=== PATIENT | female | born 1940 | race African-American/Black ===

== ENCOUNTER 2017-06-28 06:41 | Day surgery (SDC) | payer MEDICARE, BC ==
[~2017-06-28] VITALS: Ht 162.6 cm; Wt 77.1 kg
[2017-06-28] VITALS (9 sets, daily range): BP systolic 110–137; BP diastolic 67–81
--- NOTE | 2017-06-28 00:27 | Pre-Procedure Note/Attestation ---
Pre-Procedure Note/Attestation Complete Prior to Procedure Planned Procedure: right Procedure Narrative: cataract extraction with implant right eye Indications for Procedure Pre-Operative Diagnosis: cataract right eye Attestation I attest that I discussed the nature of the procedure; its benefits; risks and complications; and alternatives (and the risks and benefits of such alternatives ), prior to the procedure, with the patient (or the patient's legal veterans employment representative). I attest that, if there was a reasonable possibility of needing a blood transfusion, the patient (or the patient's legal veterans employment representative) was given the [facility] standardized written summary, pursuant to the [place] Blood Safety Act ([place] Health and Safety Code # 1645, as amended). I attest that I re-evaluated the patient just prior to the surgery and that there has been no change in the patient's H&P, except as documented below: TITO GRAMAJO Jun 28, 2017 00:27
--- NOTE | 2017-06-28 00:27 | Pre-Procedure Note/Attestation ---
Pre-Procedure Note/Attestation Complete Prior to Procedure Planned Procedure: right Procedure Narrative: cataract extraction with implant right eye Indications for Procedure Pre-Operative Diagnosis: cataract right eye Attestation I attest that I discussed the nature of the procedure; its benefits; risks and complications; and alternatives (and the risks and benefits of such alternatives ), prior to the procedure, with the patient (or the patient's legal sales representative groceries). I attest that, if there was a reasonable possibility of needing a blood transfusion, the patient (or the patient's legal sales representative groceries) was given the [facility] standardized written summary, pursuant to the Jerman [place] Blood Safety Act ([place] Health and Safety Code # 1645, as amended). I attest that I re-evaluated the patient just prior to the surgery and that there has been no change in the patient's H&P, except as documented below: TITO GRAMAJO Jun 28, 2017 00:27
--- NOTE | 2017-06-28 00:27 | Pre-Procedure Note/Attestation ---
Pre-Procedure Note/Attestation Complete Prior to Procedure Planned Procedure: right Procedure Narrative: cataract extraction with implant right eye Indications for Procedure Pre-Operative Diagnosis: cataract right eye Attestation I attest that I discussed the nature of the procedure; its benefits; risks and complications; and alternatives (and the risks and benefits of such alternatives ), prior to the procedure, with the patient (or the patient's legal construction representative). I attest that, if there was a reasonable possibility of needing a blood transfusion, the patient (or the patient's legal construction representative) was given the [facility] standardized written summary, pursuant to the Jerman [place] Blood Safety Act ([place] Health and Safety Code # 1645, as amended). I attest that I re-evaluated the patient just prior to the surgery and that there has been no change in the patient's H&P, except as documented below: TITO GRAMAJO Jun 28, 2017 00:27
[2017-06-28] MEDS ORDERED: Dexamethasone 4mg/ml vial ONE (06:53)
[2017-06-28] MEDS ORDERED: Lidocaine 1% MPF 10mg/ml 5ml ONE (06:53)
[2017-06-28] MEDS ORDERED: EPINEPHrine 1mg/1ml Amp ONE (06:53)
[2017-06-28] MEDS ORDERED: BSS 15ml BTL ONE (06:53)
[2017-06-28] MEDS ORDERED: Povidone-Iodine 5% opth solution ONE (06:53)
[2017-06-28] MEDS ORDERED: BSS 500ml btl ONE (06:53)
[2017-06-28] MEDS ORDERED: Sodium Hyaluronate 14 mg/ml 0.85ml ONE (06:54)
[2017-06-28] MEDS ORDERED: Flurbiprofen 0.03% Opth Sol 2.5ml RIGHT EYE SCH (07:00)
[2017-06-28] MEDS ORDERED: Tobradex Opth Susp 2.5ml ONE (07:49)
[2017-06-28] MEDS ORDERED: Flurbiprofen 0.03% Opth Sol 2.5ml ONE (07:49)
[2017-06-28] MEDS ORDERED: Tropicamide 1% Opth 15ml Soln ONE (07:49)
[2017-06-28] MEDS ORDERED: Phenylephrine 2.5% Op 2ml Soln ONE (07:49)
[2017-06-28] MEDS ORDERED: Akten 3.5% 1ml Btl ONE (07:49)
[2017-06-28] MEDS ORDERED: Vigamox Opth Soln 3ml ONE (07:49)
[2017-06-28] MEDS: Vigamox Opth Soln 3ml RIGHT EYE SCH ×3 (07:53→08:20)
[2017-06-28] MEDS: Tropicamide 1% Opth 15ml Soln RIGHT EYE SCH ×3 (07:54→08:19)
[2017-06-28] MEDS: Phenylephrine 2.5% Op 2ml Soln RIGHT EYE SCH ×3 (07:54→08:19)
[2017-06-28] MEDS: Akten 3.5% 1ml Btl RIGHT EYE SCH ×3 (07:54→08:20)
[2017-06-28] MEDS: Flurbiprofen 0.03% Opth Sol 2.5ml RIGHT EYE SCH ×4 (07:54→08:25)
[2017-06-28] MEDS: Tobradex Opth Susp 2.5ml RIGHT EYE SCH ×3 (07:54→08:20)
[2017-06-28] MEDS ORDERED: FLONASE SENSIM9.9 ML NS (08:11)
[2017-06-28] MEDS ORDERED: NEXIUM40 MG ORAL (08:11)
[2017-06-28] MEDS ORDERED: fentaNYL 100 mcg/2 mL IV ONE (08:53)
[2017-06-28] MEDS ORDERED: Sterile Water Irrig 1000ml IRRIG ONE (08:53)
[2017-06-28] MEDS ORDERED: Midazolam 2mg/2ml Inj ONE (08:53)
[2017-06-28] MEDS ORDERED: NS Irrig 1000ml ONE (08:53)
--- NOTE | 2017-06-28 09:29 | Anethesia Preoperative Eval ---
Anesthesia Pre-op PMH/ROS General Date of Evaluation: Jun 28, 2017 Time of Evaluation: 08:53 Anesthesiologist: Rula ASA Score: ASA 3 Mallampati Score Class I : Soft palate, uvula, fauces, pillars visible Class II: Soft palate, uvula, fauces visible Class III: Soft palate, base of uvula visible Class IV: Only hard plate visible Mallampati Classification: Class II Surgeon: Arnaldo Diagnosis: cataract right eye Surgical Procedure: right eye cataract removal w/ imlplant Anesthesia History: none Family History: no anesthesia problems Allergies: Coded Allergies: PENICILLINS (Verified Allergy, Severe, Rash, 06/28/17) Past Medical History Cardiovascular: Denies: HTN, CAD, NV, valve dz, arrhythmia, other Pulmonary: Reports: asthma - controlled uses inhalaer 3 X per year Gastrointestinal/Genitourinary: Reports: GERD - occasional, controlled with nexium 3 x per week Neurologic/Psychiatric: Denies: dementia, CVA, depression/anxiety, TIA, other Endocrine: Reports: other - L breast CA HEENT: Reports: cataract (L), cataract (R) Hematology/Immune: Denies: anemia, DVT, bleeding disorder, other Musculoskeletal/Integumentary: Reports: DJD - joint pain Other: obesity, other - sinus problem related to seasonal allergy Anesthesia Pre-op Phys. Exam Physician Exam Last Vital Signs Date Time Temp Pulse Resp B/P (MAP) Pulse Ox O2 Delivery O2 Flow Rate FiO2 06/28/17 07:58 97.2 81 18 137/77 97 Room Air Constitutional: NAD Neurologic: CN 2-12 intact Cardiovascular: RRR Respiratory: CTA Gastrointestinal: S/NT/ND Airway Exam Mallampati Score: Class II MO: full ROM: full Teeth: intact Dentures: no upper, no lower Anesthesia Pre-op A/P Labs chart reviewed Studies Pre-op Studies: EKG - NSR Risk Assessment & Plan Plan: MAC Status Change Before Surgery: No Pre-Antibiotics Given Within 1 Hr of Incision: No Jessica Horta CRNA Jun 28, 2017 09:29
--- NOTE | 2017-06-28 09:30 | Immediate Post-Op Evaluation ---
Immediate Post-Op Evalulation Immediate Post-Op Evalulation Procedure: right eye cataract removal with implant Date of Evaluation: Jun 28, 2017 Time of Evaluation: 09:36 IV Fluids: LR 300 ml Blood Products: 0 Estimated Blood Loss: less than 2 ml Urinary Output: 0 Blood Pressure Systolic: 128 Blood Pressure Diastolic: 67 Pulse Rate: 89 Respiratory Rate: 20 O2 Sat by Pulse Oximetry: 100 Temperature (Fahrenheit): 97.4 Pain Score (1-10): 0 Nausea: No Vomiting: No Complications none Patient Status: awake, reacts Hydration Status: adequate Given Within 1 Hr of Incision: Jessica Kaplan CRNA Jun 28, 2017 09:30
--- NOTE | 2017-06-28 09:31 | 48 Hour Post Anesthesia Eval ---
Post Anesthesia Evaluation Procedure: right eye cataract removal with implant Date of Evaluation: Jun 28, 2017 Time of Evaluation: 09:40 Blood Pressure Systolic: 130 0: 69 Pulse Rate: 90 Respiratory Rate: 18 Temperature (Fahrenheit): 97.4 O2 Sat by Pulse Oximetry: 99 Airway: patent Nausea: No Vomiting: No Pain Intensity: 0 Hydration Status: adequate Mental Status/LOC: patient returned to baseline Follow-up care needed: patient intructions given Jessica Horta CRNA Jun 28, 2017 09:31
--- NOTE | 2017-06-28 09:35 | Brief Operative Note ---
Immediate Post Operative Note Operative Note Pre-op Diagnosis: cataract right eye Procedure: phacoemulsification of cataract with implant right eye Post-op Diagnosis: same as pre-op Surgeon: tito nelson Industrial Technician: none Anesthesiologist: morelia major crna Anesthesia: MAC Specimen: none Complications: none Condition: stable Fluids: none Estimated Blood Loss: none Drains: none Implant(s) used?: Yes TITO NELSON Jun 28, 2017 09:35
--- NOTE | 2017-06-28 16:45 | Operative Note - Dictated ---
DATE OF OPERATION: 06/28/2017 PREOPERATIVE DIAGNOSIS: Cataract, right eye. POSTOPERATIVE DIAGNOSIS: Cataract, right eye. PROCEDURE: Phacoemulsification cataract, right eye with placement of posterior chamber intraocular lens. SURGEON: Sukhi Mcintosh M.D. DISASTER RECOVERY ANALYST: None. ANESTHESIA: MAC/topical. ANESTHESIOLOGIST: Ayan Horta CRNA. INDICATION FOR PROCEDURE: Poor vision, right eye. DESCRIPTION OF FINDINGS: Nuclear sclerotic and cortical cataract, right eye. DESCRIPTION OF PROCEDURE: The patient received a topical anesthetic block consisting of 4% Xylocaine drops. The eye was prepped and draped in usual manner. A lid speculum was placed. An operating Zeiss microscope was positioned. A temporal corneal groove was made with a og blade. A SuperSharp blade made a stab incision at the 12 o'clock position. A 0.1 mL of 1% nonpreserved intracameral lidocaine was injected. Healon was instilled into the anterior chamber and a 2.5/2.8 mm trapezoidal og blade was used to complete the temporal corneal wound. A cystotome was used to create an anterior capsular flap. Utrata forceps were used to complete the capsulorrhexis. BSS on a cannula was used to hydrodissect the nucleus. The lens nucleus phacoemulsified in a phaco-fracture technique. Remaining cortical materials with the I/A and the posterior capsule polished with the I/A on Cap vac. Healon was instilled into the capsular bag and anterior chamber and an Merida foldable one-piece posterior chamber intraocular lens, model ZCB00, power 20.5 diopter, serial #[id number] was placed in the injector. The lens was put into the capsular bag. The I/A tip was used to remove the Healon and position the lens. The wound edge was hydrated with BSS and a blunt-tipped cannula. The wound was checked and found to be watertight. The lid speculum was removed and a drop of TobraDex and Vigamox was placed. A clear plastic shield was taped over the eye. The patient tolerated the procedure well and left the operating room in good condition. Sukhi Mcintosh M.D. ([facility] [place]) DR: MARINA JOB#: [id number] CC:
--- NOTE | 2017-06-28 16:45 | Operative Note - Dictated ---
DATE OF OPERATION: 06/28/2017 PREOPERATIVE DIAGNOSIS: Cataract, right eye. POSTOPERATIVE DIAGNOSIS: Cataract, right eye. PROCEDURE: Phacoemulsification cataract, right eye with placement of posterior chamber intraocular lens. SURGEON: Sukhi Mcintosh M.D. NOTCHER: None. ANESTHESIA: MAC/topical. ANESTHESIOLOGIST: Ayan Horta CRNA. INDICATION FOR PROCEDURE: Poor vision, right eye. DESCRIPTION OF FINDINGS: Nuclear sclerotic and cortical cataract, right eye. DESCRIPTION OF PROCEDURE: The patient received a topical anesthetic block consisting of 4% Xylocaine drops. The eye was prepped and draped in usual manner. A lid speculum was placed. An operating Zeiss microscope was positioned. A temporal corneal groove was made with a og blade. A SuperSharp blade made a stab incision at the 12 o'clock position. A 0.1 mL of 1% nonpreserved intracameral lidocaine was injected. Healon was instilled into the anterior chamber and a 2.5/2.8 mm trapezoidal og blade was used to complete the temporal corneal wound. A cystotome was used to create an anterior capsular flap. Utrata forceps were used to complete the capsulorrhexis. BSS on a cannula was used to hydrodissect the nucleus. The lens nucleus phacoemulsified in a phaco-fracture technique. Remaining cortical materials with the I/A and the posterior capsule polished with the I/A on Cap vac. Healon was instilled into the capsular bag and anterior chamber and an Merida foldable one-piece posterior chamber intraocular lens, model ZCB00, power 20.5 diopter, serial #[id number] was placed in the injector. The lens was put into the capsular bag. The I/A tip was used to remove the Healon and position the lens. The wound edge was hydrated with BSS and a blunt-tipped cannula. The wound was checked and found to be watertight. The lid speculum was removed and a drop of TobraDex and Vigamox was placed. A clear plastic shield was taped over the eye. The patient tolerated the procedure well and left the operating room in good condition. Sukhi Mcintosh M.D. ([facility] [place]) DR: MARINA JOB#: [id number] CC:
--- NOTE | 2017-06-28 16:45 | Operative Note - Dictated ---
DATE OF OPERATION: 06/28/2017 PREOPERATIVE DIAGNOSIS: Cataract, right eye. POSTOPERATIVE DIAGNOSIS: Cataract, right eye. PROCEDURE: Phacoemulsification cataract, right eye with placement of posterior chamber intraocular lens. SURGEON: Sukhi Mcintosh M.D. BILLET HEADER: None. ANESTHESIA: MAC/topical. ANESTHESIOLOGIST: Ayan Horta CRNA. INDICATION FOR PROCEDURE: Poor vision, right eye. DESCRIPTION OF FINDINGS: Nuclear sclerotic and cortical cataract, right eye. DESCRIPTION OF PROCEDURE: The patient received a topical anesthetic block consisting of 4% Xylocaine drops. The eye was prepped and draped in usual manner. A lid speculum was placed. An operating Zeiss microscope was positioned. A temporal corneal groove was made with a og blade. A SuperSharp blade made a stab incision at the 12 o'clock position. A 0.1 mL of 1% nonpreserved intracameral lidocaine was injected. Healon was instilled into the anterior chamber and a 2.5/2.8 mm trapezoidal og blade was used to complete the temporal corneal wound. A cystotome was used to create an anterior capsular flap. Utrata forceps were used to complete the capsulorrhexis. BSS on a cannula was used to hydrodissect the nucleus. The lens nucleus phacoemulsified in a phaco-fracture technique. Remaining cortical materials with the I/A and the posterior capsule polished with the I/A on Cap vac. Healon was instilled into the capsular bag and anterior chamber and an Merida foldable one-piece posterior chamber intraocular lens, model ZCB00, power 20.5 diopter, serial #[id number] was placed in the injector. The lens was put into the capsular bag. The I/A tip was used to remove the Healon and position the lens. The wound edge was hydrated with BSS and a blunt-tipped cannula. The wound was checked and found to be watertight. The lid speculum was removed and a drop of TobraDex and Vigamox was placed. A clear plastic shield was taped over the eye. The patient tolerated the procedure well and left the operating room in good condition. Sukhi Mcintosh M.D. ([facility] [place]) DR: MARINA JOB#: [id number] CC:
[2017-06-29] MEDS ORDERED: Vigamox Opth Soln 3ml RIGHT EYE SCH (00:30)
[2017-06-29] MEDS ORDERED: Akten 3.5% 1ml Btl RIGHT EYE SCH (00:30)
[2017-06-29] MEDS ORDERED: Tropicamide 1% Opth 15ml Soln RIGHT EYE SCH (00:30)
[2017-06-29] MEDS ORDERED: Phenylephrine 2.5% Op 2ml Soln RIGHT EYE SCH (00:30)
[2017-06-29] MEDS ORDERED: Tobradex Opth Susp 2.5ml RIGHT EYE SCH (00:30)
== END 2017-06-28 11:00 | disposition home or self-care (01) ==
LOC: SUR 06:41
DX: H25.11 Age-related nuclear cataract, right eye (principal); H25.011 Cortical age-related cataract, right eye; K21.9 Gastro-esophageal reflux disease without esophagitis; Z88.0 Allergy status to penicillin; M19.90 Unspecified osteoarthritis, unspecified site; K57.90 Diverticulosis of intestine, part unspecified, without perforation or abscess without bleeding; Z85.3 Personal history of malignant neoplasm of breast; N61.1 Abscess of the breast and nipple; Z82.61 Family history of arthritis; Z80.3 Family history of malignant neoplasm of breast
CPT/HCPCS: 66984; J0171; J1100; J2250; J3010; V2632; 94003; 94150

== ENCOUNTER 2019-03-15 11:43 | Inpatient (IN) | payer BC, MEDICARE ==
[~2019-03-15] VITALS: Ht 165.1 cm; Wt 79.4 kg
[~2019-03-15 11:43] MED LIST: FLONASE SENSIM9.9 ML NS; NEXIUM40 MG ORAL
[2019-03-15 11:55] VITALS: BP 126/72
--- NOTE | 2019-03-15 11:55 | NUR ---
ED Nurse Note: pt walked in to ED due to SOB since this morning. wheezing and rales audiable. labored breathing noted. pt hard time to talk. >94% in RA. on ophthalmic photographer. meds given as ordered. RT called. has asthma. skin warm to touch. no open wound noted. AAO x4. will wait for the further order.
[2019-03-15] MEDS ORDERED: Solu-MEDROL 125mg Inj IVP ONE (12:00)
--- NOTE | 2019-03-15 12:02 | NUR ---
ED Nurse Note: Dr. Spencer at bedside and ordered to infuse magnesium sulfate 1g over 30min. will carry out the order.
[2019-03-15] MEDS: Ipratropium 0.02% Inh Soln 2.5ml UD HHN SCH ×6 (12:05→13:37)
[2019-03-15] MEDS: Albuterol ud Inhalation HHN SCH ×6 (12:05→13:37)
--- NOTE | 2019-03-15 12:10 | Emergency Room Report ---
History of Present Illness General Chief Complaint: Dyspnea/Respdistress Source: Patient Present Illness HPI 79-year-old female history of asthma, on Advair, presents with shortness of breath that started at 10 AM, she states that pollen aggravates it, alleviated by taking her asthma medications, she states her shortness of breath is moderate in nature, she is never been intubated, never been placed in ICU, she denies any abdominal pain she does endorse some chest tightness, no nausea no vomiting, no fever/chills, patient presents for evaluation Allergies: Coded Allergies: PENICILLINS (Verified Allergy, Severe, Rash, 06/28/17) TETANUS AND DIPHTHERIA TOXOIDS (Verified Allergy, Unknown, 03/15/19) Patient History Limited by: medical condition - Patient tachypneic, in respiratory distress Past Medical History: see triage record Last Menstrual Period: na Reviewed Nursing Documentation: PMH: Agreed; PSxH: Agreed Nursing Documentation-PMH Past Medical History: No History, Except For Hx Cardiac Problems: No Hx Asthma: Yes Hx COPD: Yes Hx Cancer: Yes Hx Gastrointestinal Problems: Yes Hx Neurological Problems: No Review of Systems Constitutional: Denies: chills, fever Eye: Denies: blurred vision, double vision ENT: Denies: throat pain, nasal discharge Respiratory: Reports: shortness of breath, wheezing; Denies: cough Cardiovascular: Reports: chest pain, palpitations Gastrointestinal: Denies: abdominal pain, diarrhea, nausea, vomiting Genitourinary: Denies: dysuria, pain Musculoskeletal: Denies: back pain, muscle pain Skin: Denies: rash, lesions Neurological: Denies: headache, focal weakness Hematologic/Lymphatic: Denies: easy bleeding, easy bruising All Other Systems: negative except mentioned in HPI Physical Exam Vital Signs Date Time Temp Pulse Resp B/P (MAP) Pulse Ox O2 Delivery O2 Flow Rate FiO2 03/15/19 11:45 98.2 134 36 131/83 (99) 92 Room Air Sp02 EP Interpretation: reviewed, normal General Appearance: alert, moderate distress Head: normocephalic, atraumatic Eyes: bilateral eye PERRL, bilateral eye EOMI ENT: uvula midline, moist mucus membranes Neck: supple, thyroid normal, supple/symm/no masses Respiratory: accessory muscle use, wheezing - Moderate wheezing, tachypnea Cardiovascular #1: normal peripheral pulses, no edema, no gallop, no murmur, tachycardia Gastrointestinal: non tender, soft, no guarding, no rebound Musculoskeletal: normal inspection Neurologic: alert, oriented x3 Psychiatric: mood/affect normal Skin: no rash, warm/dry Procedures Critical Care Time Critical Care Time Given the critical condition in which the patient arrived, the patient was immediately assessed by myself and the nurse, and cardiac monitoring initiated due to the potential for rapid decompensation of the patient's clinical condition. During the course of the patient's stay, I spent a considerable amount of time at the bedside performing serial re-evaluations of the patient's hemodynamic and clinical status because of the recognized potential threat to life or limb in this condition. I then had a chance to review not only all of the available current laboratory and radiographic studies obtained today, but I also reviewed old records available to me at the time. Additionally, any ancillary information available including plant pathology teacher records were reviewed. Sequential vital signs were obtained. She had acute respiratory distress, patient needed 6 rounds of duo nebs, steroids, magnesium, patient was using accessory muscles, now significantly improved, multiple re-evaluations were needed. Critical Care time of 33 minutes was performed exclusive of billable procedures. Medical Decision Making Diagnostic Impression: Primary Impression: Dyspnea Additional Impressions: Respiratory distress Asthma exacerbation ER Course 79-year-old female presents with shortness of breath, tachycardia, dyspneic, patient unable to speak full sentences, patient with an asthma exacerbation, versus ACS, patient given duo nebs, steroids, magnesium, patient feels better, now speaking full sentences refer to reevaluation's, Evaluation 12:50 PM, patient little more comfortable however still short of breath, and tachycardic, Reeval 2 p.m., wheezing mild, almost completely resolved, patient feels better, patient no longer needs to go to stepdown, patient may go to telemetry Patient endorsed to Dr. Barrios Laboratory Tests Test 03/15/19 11:30 White Blood Count 7.2 K/UL (4.8-10.8) Red Blood Count 4.75 M/UL (4.20-5.40) Hemoglobin 14.8 G/DL (12.0-16.0) Hematocrit 45.5 % (37.0-47.0) Mean Corpuscular Volume 96 FL (80-99) Mean Corpuscular Hemoglobin 31.2 PG (27.0-31.0) H Mean Corpuscular Hemoglobin Concent 32.6 G/DL (32.0-36.0) Red Cell Distribution Width 12.4 % (11.6-14.8) Platelet Count 309 K/UL (150-450) Mean Platelet Volume 5.4 FL (6.5-10.1) L Neutrophils (%) (Auto) 57.5 % (45.0-75.0) Lymphocytes (%) (Auto) 33.8 % (20.0-45.0) Monocytes (%) (Auto) 3.9 % (1.0-10.0) Eosinophils (%) (Auto) 4.1 % (0.0-3.0) H Basophils (%) (Auto) 0.6 % (0.0-2.0) Sodium Level 140 MMOL/L (136-145) Potassium Level 3.8 MMOL/L (3.5-5.1) Chloride Level 105 MMOL/L (98-107) Carbon Dioxide Level 28 MMOL/L (21-32) Anion Gap 7 mmol/L (5-15) Blood Urea Nitrogen 17 mg/dL (7-18) Creatinine 1.1 MG/DL (0.55-1.30) Estimate Glomerular Filtration Rate mL/min (>60) Glucose Level 118 MG/DL (74-106) H Calcium Level 9.7 MG/DL (8.5-10.1) Total Bilirubin 0.4 MG/DL (0.2-1.0) Aspartate Amino Transferase (AST) 21 U/L (15-37) Alanine Aminotransferase (ALT) 19 U/L (12-78) Alkaline Phosphatase 80 U/L (46-116) Total Creatine Kinase 261 U/L (26-308) Creatine Kinase MB 1.2 NG/ML (0.0-3.6) Creatine Kinase MB Relative Index 0.4 Troponin I 0.000 ng/mL (0.000-0.056) Total Protein 7.6 G/DL (6.4-8.2) Albumin 3.9 G/DL (3.4-5.0) Globulin 3.7 g/dL Albumin/Globulin Ratio 1.1 (1.0-2.7) EKG Diagnostic Results EKG Time: 12:00 EP Interpretation: Sinus tachycardia, rate 113, QTc 463, no acute ST elevations , normal axis Rate: tachycardiac Rhythm: other ST Segments: no acute changes Rhythm Strip Diag. Results Rhythm Strip Time: 12:28 EP Interpretation: yes Rate: 107 Rhythm: other Chest X-Ray Diagnostic Results Chest X-Ray Diagnostic Results : Chest X-Ray Ordered: Yes # of Views/Limited/Complete: 1 View Indication: Shortness of Breath EP Interpretation: Yes Interpretation: no consolidation, no effusion, no pneumothorax, no acute cardiopulmonary disease Impression: No acute disease Electronically Signed by: Caden Spencer MD Last Vital Signs Date Time Temp Pulse Resp B/P (MAP) Pulse Ox O2 Delivery O2 Flow Rate FiO2 03/15/19 11:55 134 36 Room Air 03/15/19 11:55 98.2 126/72 96 Disposition: ADMITTED INPATIENT Condition: Stable Caden Spencer MD Mar 15, 2019 12:10
[2019-03-15 12:12] LABS: BASOPHILS % (AUTO) 0.6 % (0.0-2.0); EOSINOPHILS % (AUTO) 4.1 % (0.0-3.0); HEMATOCRIT 45.5 % (37.0-47.0); HEMOGLOBIN 14.8 G/DL (12.0-16.0); LYMPHOCYTES % (AUTO) 33.8 % (20.0-45.0); MEAN CORPUSCULAR VOLUME 96 FL (80-99); MONOCYTES % (AUTO) 3.9 % (1.0-10.0); NEUTROPHILS % (AUTO) 57.5 % (45.0-75.0); PLATELET COUNT 309 K/UL (150-450); RED BLOOD COUNT 4.75 M/UL (4.20-5.40); RED CELL DISTRIBUTION WIDTH 12.4 % (11.6-14.8); WHITE BLOOD COUNT 7.2 K/UL (4.8-10.8)
[2019-03-15 12:19] LABS: ANION GAP 7 mmol/L (5-15); BLOOD UREA NITROGEN 17 mg/dL (7-18); CALCIUM 9.7 MG/DL (8.5-10.1); CARBON DIOXIDE 28 MMOL/L (21-32); CHLORIDE 105 MMOL/L (98-107); CREATININE 1.1 MG/DL (0.55-1.30); POTASSIUM 3.8 MMOL/L (3.5-5.1); SODIUM 140 MMOL/L (136-145)
[2019-03-15 12:33] LABS: ALANINE AMINOTRANSFERASE 19 U/L (12-78); ALBUMIN 3.9 G/DL (3.4-5.0); ALBUMIN/GLOBULIN RATIO 1.1 (1.0-2.7); ALKALINE PHOSPHATASE 80 U/L (46-116); ASPARTATE AMINO TRANSFERASE 21 U/L (15-37); BILIRUBIN,TOTAL 0.4 MG/DL (0.2-1.0); CKMB 1.2 NG/ML (0.0-3.6); CREATINE KINASE 261 U/L (26-308)
[2019-03-15 13:58] VITALS: BP 108/46
--- NOTE | 2019-03-15 13:59 | NUR ---
ED Nurse Note: pt lying in bed comfortably. breathing sounds better than inital. per pt, feeling better. 127HR on court recording monitor after breathing tx. Dr. Chakraborty notified.
--- NOTE | 2019-03-15 14:57 | NUR ---
ED Nurse Note: report given to GERMAINE John.
--- NOTE | 2019-03-15 15:08 | NUR ---
ED Nurse Note: PT TRANSFERRED TO TELE, PT SINUS TACH ON DIRECTOR OF CASEWORK, VSS, RESP EVEN AND UNLABORED AT THIS TIME, IV INTACT AND PATENT, BELONGINGS SENT W/ PT W/ COMPLETED LIST, CARE ENDORSED TO GERMAINE NAVARRO.
--- NOTE | 2019-03-15 15:10 | Diagnostic Imaging Report ---
Indication: Reason For Exam: DYSPNEA Technique: One view of the chest Comparison: none Findings: Normal heart size. No definite acute infiltrates, effusions, or congestion. Band of atelectasis or scarring is seen in the left midlung. The aorta is tortuous and ectatic Impression: No acute process
--- NOTE | 2019-03-15 15:30 | NUR ---
NURSE NOTES: Admitted patient from ER to Tele rm [id number] via [employer]. Received report from Amber/RN, Patient is AO X4, able to make needs known. IV is intact and patent, No infiltration or bleeding noted. No acute distress/SOB noted at this time. Heart monitor in place. All admission intervention done. Belonging check done. Notified Dr. Barrios of admission, admission orders received and carried out. Skin is intact. Will continue with the plan of care.
[2019-03-15 16:00] VITALS: BP 118/71
[2019-03-15] MEDS ORDERED: Albuterol/Ipratropium 3ml neb HHN PRN (16:30)
--- NOTE | 2019-03-15 16:43 | Consultation ---
Consult Note Assessment/Plan dict status asthmaticus hx breast cancer HHN steroids PPI Sukhi Bernabe MD Mar 15, 2019 16:43
[2019-03-15] MEDS ORDERED: Sodium Chloride 3% 4ml Nebul Soln INH ONE (17:00)
[2019-03-15] MEDS ORDERED: Milk of Magnesia 30ml Ud ORAL PRN (18:00)
--- NOTE | 2019-03-15 19:15 | NUR ---
NURSE NOTES: Received report from Alvaro RN, pt. in bed awake, A/O x's4- able to make needs known, no signs or symptoms of acute cardiac or respiratory distress noted, bed in lowest position and call light within easy reach, bed alarm on, side rails up x's3 and safety brakes engaged, pt. appears to be resting comfortably, and appears to be clean and dry, LT. AC 20G IV intact and patent saline lock, safety measures continue, will continue with plan of care. Addendum: 03/15/19 at 1928 by ZAC ROMAN RN RN Side rails padded for seizure precautions.
--- NOTE | 2019-03-15 19:18 | NUR ---
HAND-OFF: Report given to GERMAINE Cleary.
[2019-03-15] MEDS: Albuterol/Ipratropium 3ml neb HHN SCH ×2 (19:38→23:22)
[2019-03-15 20:00] VITALS: BP 119/66
[2019-03-15] MEDS: Solu-MEDROL 40mg Inj IVP SCH (20:07)
--- NOTE | 2019-03-15 21:30 | Consultation ---
DATE OF CONSULTATION: 03/15/2019 PULMONARY CONSULTATION CONSULTING PHYSICIAN: Sukhi Bernabe M.D. ATTENDING PHYSICIAN: Kirill Barrios M.D. CHIEF COMPLAINT: Short of breath. HISTORY OF PRESENT ILLNESS: The patient has a long history of mild asthma for several years. She uses inhaled Advair p.r.n. Yesterday, she felt fine, but today she began having coughing and spitting up clear mucus with shortness of breath. She came to the emergency department with a respiratory distress. She was given breathing treatments and steroids and is improved. She remains tachycardic and admission was arranged. She has not been hospitalized for asthma in the past. She has no history of other lung problems and has never smoked. 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 MEDICATIONS: Advair as noted above, Arimidex, calcium, Flonase, Nexium, Macrobid, valacyclovir, vitamin D, and prednisone 2 mg daily. ALLERGIES: Tetanus toxoid, penicillin. IMMUNIZATIONS: Apparently, she had tetanus toxoid in September of this year. I do not know how she tolerated it. SURGICAL HISTORY: Tonsillectomy, breast lumpectomy, mastectomy, colonoscopy, cataract surgery, hysteroscopy with D and C, which was done this month. FAMILY HISTORY: Reviewed and not significant except that it is positive for breast cancer. SOCIAL HISTORY: She does not smoke. She uses alcohol socially. PHYSICAL EXAMINATION: GENERAL: The patient is alert and responds appropriately. She is tachycardic. She is in respiratory distress. She is overweight. HEENT: Head is normocephalic. NECK: No jugular venous distention. CHEST: Fairly clear at this time. CARDIAC: Rhythm is regular. Tachycardia. ABDOMEN: Soft and nontender. Liver and spleen not enlarged. EXTREMITIES: No clubbing, cyanosis, or edema. LABORATORY STUDIES AND IMAGING: Reviewed. IMPRESSION: 1. Status asthmaticus. 2. Allergic rhinitis. 3. History of breast cancer, mastectomy. 4. Mild hyperglycemia. PLAN: The patient will be treated with steroids and bronchodilators. I do not think antibiotics are indicated at this time. I will follow with you in the hospital. Early discharge is anticipated. Sukhi Bernabe M.D. DR: OSMIN JOB#: [id number] CC: Kirill Barrios M.D.; Fax#: [phone]
[2019-03-16] VITALS: BP 111/56
[2019-03-16] MEDS: Albuterol/Ipratropium 3ml neb HHN SCH ×4 (03:13→15:00)
[2019-03-16 04:00] VITALS: BP 111/57
--- NOTE | 2019-03-16 07:05 | NUR ---
HAND-OFF: Report given to Constanza RN, pt. remains stable and no distress noted.
--- NOTE | 2019-03-16 07:39 | NUR ---
NURSE NOTES: Report received from GERMAINE Aranda. Pt shows no signs of distress. A+Ox4, denies pain and SOB. Respirations are even and unlabored on room air. IV site is patent and intact. Bed is at lowest position, brakes engaged, siderails x2, bed alarm on, and call light within reach. Pt is in stable condition at this time; will continue to monitor.
[2019-03-16 08:00] VITALS: BP 115/55
[2019-03-16] MEDS: Solu-MEDROL 40mg Inj IVP SCH (08:56)
[2019-03-16] MEDS ORDERED: Pantoprazole Inj IVP SCH (09:00)
[2019-03-16] MEDS ORDERED: Flonase Nasal Inhaler 16gm NASAL SCH (09:00)
[2019-03-16] MEDS ORDERED: Heparin 5000 units/ml inj SUBQ SCH (09:00)
--- NOTE | 2019-03-16 09:25 | NUR ---
NURSE NOTES: Pt wants to be discharged today. Called Dr. Barrios who said he will be here before noon to see the patient.
[2019-03-16 12:00] VITALS: BP 123/67
--- NOTE | 2019-03-16 12:19 | NUR ---
CASE MANAGEMENT: INITIAL REVIEW 79 YO F PRESENTED TO OUR ED FROM HOME CC: DYSPNEA PMHx: COPD. ASTHMA. CANCER. SI:ASTHMA EXACERBATION. T 98.2 HR 134 RR 36 B/P 131/83 SATS 92% ON RA GLU 118 IS: DUO NEB HHN X1 NS BOLUS X1 SOLU MEDROL IV X1 MAG SULFATE IV X1 DUO NEB HHN X1 PATIENT ADMITTED TO TELE 03/15/2019 @ 1538 DCP: PATIENT TO BE DISCHARGED TO HOME ONCE MEDICALLY CLEARED. PLAN OF CARE: STEROIDS AND BRONCHODILATORS 03/16/2019 SI:ASTHMA EXACERBATION. T 98.1 HR 110 RR 21 B/P 115/55 SATS 95% ON RA NO LABS TODAY IS: SOLU MEDROL IV Q12H PROTONIX IV QD FLONASE NASAL QD ALBUTEROL/IPRATROPIUM HHN Q4HRT TELE STATUS DCP: PATIENT TO BE DISCHARGED TO HOME ONCE MEDICALLY CLEARED. PLAN OF CARE: STEROIDS AND BRONCHODILATORS SPUTUM CULTURE Addendum: 03/16/19 at 1229 by Dara Jiang CM INTERQUAL MET
[2019-03-16] MEDS ORDERED: Albuterol 90mcg Inhaler 8gm INH PRN (13:15)
[2019-03-16] MEDS ORDERED: ALBUTEROL2.5 MG/3 M INH (14:19)
[2019-03-16] MEDS ORDERED: PREDNISONE20 MG ORAL (14:20)
--- NOTE | 2019-03-16 15:14 | NUR ---
NURSE NOTES: Respiratory therapist saw patient and instructed her on use of albuterol inhaler. Discharge instructions printed and signed. All questions answered. Belongings verified and list signed. lunchroom monitor, IV, and wrist band removed. Patient is in stable condition, VSS. Pt discharged safely via wheelchair with friend to private vehicle.
--- NOTE | 2019-03-16 18:00 | History and Physical Report ---
DATE OF ADMISSION: 03/15/2019 CHIEF COMPLAINT/REASON FOR HOSPITALIZATION: The patient is admitted with asthma and wheezing. PERTINENT HISTORY: The patient came into the emergency room with wheezing and shortness of breath and required multiple treatments and steroids and is admitted for status asthmaticus. She has only had mild asthma and uses Advair p.r.n. There is a history of breast cancer without metastasis on tamoxifen and some gastritis. SURGERIES: Polyp of the uterus and right and left breast surgery. MEDICATIONS: Tamoxifen 1 tablet daily, Nexium 1 tablet daily, Advair 250/50 b.i.d. p.r.n., and [id number] vitamins. ALLERGIES: Penicillin and tetanus. SYSTEM REVIEW: HEAD, EYES, EARS, NOSE, AND THROAT: Vision and hearing is good. ENDOCRINE: No diabetes or thyroid disease. PULMONARY: Mild asthma as above. No TB. No productive cough. CARDIAC: No angina, FL, or palpitations. GASTROINTESTINAL: No GI bleeding or ulcers. She has had some gastritis. GENITOURINARY: No dysuria or hematuria. NEUROLOGIC: No CVA or syncope. PHYSICAL EXAMINATION: GENERAL: The patient is an alert lady, in no acute distress. VITAL SIGNS: Temperature 97.7, pulse 100, respirations 20, blood pressure 123/67, and pulse ox 96. HEAD, EYES, EARS, NOSE, AND THROAT: Sclerae are nonicteric. Ocular motion intact in all directions. Oral mucosa moist. NECK: No adenopathy. LUNGS: Clear. HEART: Regular rhythm. No murmur. ABDOMEN: Soft without organomegaly. EXTREMITIES: No edema, cyanosis, or clubbing. BREASTS: Deferred. She is going to see her PCP. IMPRESSION: 1. Status asthmaticus, improved with initial treatment. 2. History of gastritis. 3. History of breast cancer. PLAN: The patient's chest x-ray and exams are stable. We will discharge her today. See discharge summary. Kirill Barrios M.D. DR: BARTOLO JOB#: [id number] CC:
--- NOTE | 2019-03-16 20:00 | Discharge Summary ---
DATE OF ADMISSION: 03/15/2019 DATE OF DISCHARGE: 03/16/2019 PERTINENT HISTORY: The patient is 79-year-old lady with mild asthma, who presents with status asthmaticus and severe wheezing in the emergency room. PERTINENT PHYSICAL FINDINGS: LUNGS: After treatment on my exam, her lungs were clear. HEART: Regular rhythm. EXTREMITIES: No edema. DIAGNOSTIC DATA: Chest x-ray negative. IMPRESSION: 1. Status asthmaticus, improved. 2. History of breast cancer, on tamoxifen. 3. History of gastritis. PLAN: Discharge home on her prior to admission medications plus albuterol inhaler 2 puffs q.4 hours p.r.n. The nurse showed her how to use properly and prednisone 40 mg daily for 4 days. Followup with her PCP. Kirill Barrios M.D. DR: BARTOLO JOB#: [id number] CC:
--- NOTE | 2019-03-19 10:30 | NUR ---
*-* INSURANCE *-* ALL CLINICALS AND REVIEWS HAVE BEEN FAXED TO: [employer] GUTIÉRRE[facility]/ MERLENE MORAN: BARBARA F: [phone]
--- NOTE | 2019-03-19 18:11 | Cardiology Report ---
APPROVED REPORT EKG Measurement Heart [id number] Sinus tachycardia Nonspecific ST abnormality Abnormal ECG
== END 2019-03-16 15:49 | disposition home or self-care (01) | DRG 203 ==
LOC: EMR 12:43 → 2E 13:30 → EDBEDREQ 14:26
DX: J45.902 Unspecified asthma with status asthmaticus (principal); Z85.3 Personal history of malignant neoplasm of breast; K21.9 Gastro-esophageal reflux disease without esophagitis; K57.90 Diverticulosis of intestine, part unspecified, without perforation or abscess without bleeding; M35.3 Polymyalgia rheumatica; M85.80 Other specified disorders of bone density and structure, unspecified site; Z88.0 Allergy status to penicillin; Z88.7 Allergy status to serum and vaccine
CPT/HCPCS: 36415; 71045; 80053; 82550; 82553; 84484; 85025; 93005; 94640; 94664; 96361; 96374; 99291; J7620

== ENCOUNTER 2019-06-05 22:41 | Emergency (ER) | payer BC ==
[~2019-06-05] VITALS: Ht 165.1 cm; Wt 77.1 kg
[~2019-06-05 22:41] MED LIST changes: +ALBUTEROL2.5 MG/3 M INH; +PREDNISONE20 MG ORAL
[2019-06-05 23:26] VITALS: BP 144/85
--- NOTE | 2019-06-05 23:28 | NUR ---
ED Nurse Note: pt walked in to ED C/O " a thorn might stuck my left eye ball". pt stated this happened around 10:00am today. pt's left sclera is red. pt denies any pain or changes in vission. left eye 20/25 right eye 20/20. pt is alert x4.
[2019-06-05] MEDS ORDERED: Fluorescein Strips BOTH EYES ONE (23:30)
[2019-06-05] MEDS ORDERED: Tetracaine 0.5% Opth 4ml Soln LEFT EYE ONE (23:30)
--- NOTE | 2019-06-05 23:41 | Emergency Room Report ---
History of Present Illness General Chief Complaint: Eye Problems Source: Patient Present Illness HPI Disclaimer: Please note that this report is being documented using DRAGON technology. This can lead to erroneous entry secondary to incorrect interpretation by the dictating instrument. HPI: 79-year-old female with history of breast cancer presents for evaluation of left eye pain. Patient was putting some plants when she was brushed in the left eye by 1 of the branches. Noted immediate pain and has a foreign body sensation now. She noticed a growing redness around her eye but denies any change in vision, double vision or headache. There is no other injury reported. She does not wear contact lenses. 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 EOMI. no lid edema. Pupils are equal and reactive to light bilaterally. No blood in the anterior chamber, no hypopyon, no hyphema. There is a subconjunctival hemorrhage approximately 70% from the 2 o'clock to the 10 o 'clock portions of the eye. No chemosis. Wood's lamp exam: No fluorescein uptake to suggest corneal abrasion, ulcers or dendrites. No Cruz sign. Ocular pressures: 15 mmHg OS, 16 mmHg OD. Visual acuity: 20/20 OS, 20/25 OD Resp: Normal work of breathing Skin: Intact. No abrasions, laceration or rash over the exposed skin MSK: Normal tone and bulk. Moving all extremities. No obvious deformity. Neuro: Awake and alert. Mentating appropriately Medical Decision Making Diagnostic Impression: Primary Impression: Subconjunctival hemorrhage of left eye ER Course 71-year-old female presents for evaluation after an eye injury. She appears to have a sub-conjunctiva hemorrhage but there is no evidence of corneal abrasion, ulcer, Cruz sign to suggest globe rupture, signs of infection or changes in her vision. She is overall well-appearing. Will be given an eye patch for comfort and avoid antiplatelets medications until she can be reevaluated. She has an eye doctor and will be seeing them tomorrow morning. We discussed reasons to return to the emergency department. She understands and agrees with the treatment plan. Last Vital Signs Date Time Temp Pulse Resp B/P (MAP) Pulse Ox O2 Delivery O2 Flow Rate FiO2 06/05/19 23:18 98.6 88 16 149/85 (106) 96 Room Air Disposition: HOME, SELF-CARE Condition: Stable Renzo Singletary MD Jun 05, 2019 23:41
[2019-06-06 00:19] VITALS: BP 132/84
--- NOTE | 2019-06-06 00:20 | NUR ---
ER DISCHARGE NOTE: Patient is cleared to be discharged per ERMD, pt is aox4, on room air, with stable vital signs. pt was given dc instructions, pt was able to verbalize understanding, pt id band removed without complications. pt is able to ambulate with steady gait. pt took all belongings.
== END 2019-06-06 00:20 | disposition home or self-care (01) ==
LOC: EMR 23:37
DX: H11.32 Conjunctival hemorrhage, left eye (principal); J44.9 Chronic obstructive pulmonary disease, unspecified; K21.9 Gastro-esophageal reflux disease without esophagitis; Z85.3 Personal history of malignant neoplasm of breast; Z88.0 Allergy status to penicillin; W22.09XA Striking against other stationary object, initial encounter; Y92.9 Unspecified place or not applicable
CPT/HCPCS: 99283